=== PATIENT | male | born 1965 | race Caucasian/White ===

== ENCOUNTER 2021-09-14 14:45 | Inpatient (IN) | payer OTHER ==
[~2021-09-14] VITALS: Ht 177.8 cm; Wt 80.0 kg
[2021-09-14] VITALS (9 sets, daily range): BP systolic 92–117; BP diastolic 49–68
[2021-09-14 15:26] LABS: BASOPHILS % (AUTO) 0.3 % (0-1); EOSINOPHILS % (AUTO) 0.1 % (0-6); LYMPHOCYTES % (AUTO) 8.7 % (21-51); MEAN CORPUSCULAR HEMOGLOBIN 22.6 PG (27.0-31.0); MEAN CORPUSCULAR HGB CONC 28.7 g/dL (33.0-36.5); MEAN CORPUSCULAR VOLUME 78.6 FL (78-98); MEAN PLATELET VOLUME 8.6 FL (7.4-10.4); MONOCYTES # (AUTO) 0.4 X10'3 (0-0.9); MONOCYTES % (AUTO) 3.6 % (2-12); NEUTROPHILS # (AUTO) 9.6 X10'3 (1.8-7.7); NEUTROPHILS % (AUTO) 87.3 % (42-75); PLATELET COUNT 343 X10'3 (140-440); RED BLOOD COUNT 2.11 X10'6 (4.70-6.10); RED CELL DISTRIBUTION WIDTH 20.3 % (11.5-14.5)
[2021-09-14 15:38] LABS: ALANINE AMINOTRANSFERASE 24 U/L (12-78); ALBUMIN 2.5 G/DL (3.4-5.0); ALBUMIN/GLOBULIN RATIO 0.6 (1.1-1.5); ALKALINE PHOSPHATASE 35 IU/L (46-116); ANION GAP 11 (8-16); ASPARTATE AMINO TRANSFERASE 19 U/L (10-37); BILIRUBIN,TOTAL 0.6 MG/DL (0.1-1.0); BLOOD UREA NITROGEN 49 MG/DL (7-18); BUN/CREATININE RATIO 33.8 (5.4-32.0); CALCIUM 8.5 MG/DL (8.5-10.1); CHLORIDE 95 MMOL/L (99-107); CREATININE 1.45 MG/DL (0.60-1.10); POTASSIUM 5.6 MMOL/L (3.5-5.1); SODIUM 127 MMOL/L (135-145); TOTAL CARBON DIOXIDE 20.7 MMOL/L (24-32); TOTAL PROTEIN 6.4 G/DL (6.4-8.2); eGFR 50 ML/MIN
[2021-09-14 15:41] LABS: HEMATOCRIT 16.6 % (42.0-52.0); HEMOGLOBIN 4.8 g/dl (14.0-17.9)
[2021-09-14 15:43] LABS: GLUCOSE 589 MG/DL (70-104)
[2021-09-14] MEDS ORDERED: pantoprazole IV 80 MG in normal saline 100ml IV soln 100 ML IV ONE (16:00)
[2021-09-14] MEDS ORDERED: octreotide 100mcg/1 ml ampule IV ONE (16:00)
[2021-09-14 16:02] LABS: PLATELET ESTIMATE NORMAL
[2021-09-14 16:03] LABS: ANISOCYTOSIS 3+; HYPOCHROMASIA 1+; MICROCYTOSIS 1+; STOMATOCYTES 2+
[2021-09-14 16:04] LABS: POLYCHROMASIA 2+
[2021-09-14 16:09] LABS: APTT 24 SECONDS (22-32)
[2021-09-14] MEDS ORDERED: octreotide inj. 1,250 MCG in normal saline 250ml IV soln 250 ML IV SCH (16:10)
[2021-09-14] MEDS ORDERED: octreotide inj. 1,250 MCG in normal saline 250ml IV soln 243.75 ML IV SCH (16:11)
[2021-09-14] MEDS ORDERED: pantoprazole IV 40 MG in normal saline 100ml IV soln 100 ML IV SCH (16:13)
[2021-09-14] MEDS: pantoprazole 40MG/NS 100ML BAG 100 ML IV SCH ×4 (16:29→23:15)
--- NOTE | 2021-09-14 16:41 | NUR ---
Pt tolerating blood transfusion without difficulty.
[2021-09-14] MEDS ORDERED: TACR1CAP PO ×2 (16:48)
[2021-09-14] MEDS ORDERED: PRED20TA PO (16:50)
[2021-09-14] MEDS ORDERED: MAGN400C PO (16:50)
[2021-09-14] MEDS: normal saline 1000ml 1,000 ML IV SCH ×2 (16:55→23:15)
[2021-09-14] MEDS ORDERED: magnesium 2GM in 50ml NS 50 ML IV PRN (16:55)
[2021-09-14] MEDS ORDERED: POTASSIUM BICARB 20meq eff tab 20 MEQ TABLET.EFF PO PRN ×2 (16:55)
[2021-09-14] MEDS ORDERED: potassium CL 10mEq/100ml bag 100 ML IV PRN (16:55)
[2021-09-14] MEDS ORDERED: magnesium 4gm in 100ml NS 100 ML IV PRN (16:55)
[2021-09-14] MEDS ORDERED: ondansetron/PF 4mg/2ml inj IV PRN (16:55)
[2021-09-14] MEDS ORDERED: magnesium Cl slow-release 64mg tablet PO PRN (16:55)
--- NOTE | 2021-09-14 18:15 | NUR ---
ASSUMED CARE OF PT. REPORT RECIEVED FROM JEEVAN NEWBERRY. PT AWAKE AND ALERT. PLAN OF CARE DISCUSEED WITH PT. PT CONT ON PRBC TRANSFUSSION. NO S/S OF ADVERSE AFFECT. WILL MONIOTR.
--- NOTE | 2021-09-14 18:20 | NUR ---
Report given to Sherie.
[2021-09-14 19:22] LABS: MAGNESIUM 2.1 MG/DL (1.5-2.4)
--- NOTE | 2021-09-14 19:39 | NUR ---
PT STARTED ON 2ND UNIT OF PRBC.
[2021-09-14 19:44] LABS: POTASSIUM 6.2 MMOL/L (3.5-5.1)
--- NOTE | 2021-09-14 19:50 | NUR ---
PT IS TOLERATING 2ND UNIT OF PRBC. NO S/S OF ADVERSE REACTION. WILL MONITOR.
[2021-09-14] MEDS: K and/or MAG REPLACEMENT MC SCH (20:00)
[2021-09-14] MEDS ORDERED: sodium polystyrene sulfonate 15gm/60ml oral suspension PO ONE (20:00)
[2021-09-14] MEDS ORDERED: glucagon, human recombinant 1mg kit SUBCUT PRN (20:10)
[2021-09-14] MEDS ORDERED: dextrose 50%-water 50ml dispensing syringe IV PRN ×2 (20:10)
[2021-09-14] MEDS ORDERED: DEXTROSE 15 GM of carb/4 tabs (each vial/BOTTLE has 4 tablets) PO PRN ×2 (20:10)
[2021-09-14] MEDS ORDERED: MESSAGE TO PHARMACY PO ONE (20:10)
[2021-09-14 20:25] LABS: HEMOGLOBIN A1C 9.5 % (4.5-6.2)
[2021-09-14] MEDS ORDERED: octreotide inj. 500 MCG in normal saline 100ml IV soln 97.5 ML IV SCH (20:55)
[2021-09-14] MEDS ORDERED: pantoprazole 40MG/NS 100ML BAG 100 ML IV SCH (21:00)
[2021-09-14] MEDS: insulin glargine (Lantus) pen - multi-dose SQ SCH (21:00)
[2021-09-14] MEDS: insulin Lispro (HumaLOG) vial - multi-dose SQ SCH (21:48)
[2021-09-14] MEDS: HYDROcodone/acetaminophen 10/325mg tab PO PRN (23:08)
[2021-09-14 23:18] LABS: MEAN CORPUSCULAR HEMOGLOBIN 25.8 PG (27.0-31.0); MEAN CORPUSCULAR HGB CONC 31.7 g/dL (33.0-36.5); MEAN CORPUSCULAR VOLUME 81.4 FL (78-98); MEAN PLATELET VOLUME 8.6 FL (7.4-10.4); PLATELET COUNT 195 X10'3 (140-440); RED BLOOD COUNT 2.36 X10'6 (4.70-6.10); RED CELL DISTRIBUTION WIDTH 19.5 % (11.5-14.5); WHITE BLOOD COUNT 6.6 X10'3 (4.5-11.0)
[2021-09-14 23:25] LABS: HEMATOCRIT 19.2 % (42.0-52.0); HEMOGLOBIN 6.1 g/dl (14.0-17.9)
[2021-09-15] VITALS (15 sets, daily range): BP systolic 101–135; BP diastolic 54–92
--- NOTE | 2021-09-15 00:15 | NUR ---
UNIT 3 PRBC'S STARTED HEMOGLOBIN REDRAW AT 6.1. PT CONTINUES TO HAVE FREQUENT COPIUS BLOODY STOOLS.
[2021-09-15] MEDS: pantoprazole 40MG/NS 100ML BAG 100 ML IV SCH ×5 (01:00→21:00)
[2021-09-15] MEDS: normal saline 1000ml 1,000 ML IV SCH ×5 (02:55→22:55)
--- NOTE | 2021-09-15 06:33 | NUR ---
Problems reprioritized. Patient report given, questions answered & plan of care reviewed with
[2021-09-15 07:22] LABS: BASOPHILS % (AUTO) 0.2 % (0-1); EOSINOPHILS % (AUTO) 0.1 % (0-6); LYMPHOCYTES % (AUTO) 19.1 % (21-51); MEAN CORPUSCULAR HEMOGLOBIN 26.3 PG (27.0-31.0); MEAN CORPUSCULAR HGB CONC 32.4 g/dL (33.0-36.5); MEAN PLATELET VOLUME 8.4 FL (7.4-10.4); MONOCYTES # (AUTO) 0.6 X10'3 (0-0.9); MONOCYTES % (AUTO) 11.3 % (2-12); NEUTROPHILS # (AUTO) 3.5 X10'3 (1.8-7.7); NEUTROPHILS % (AUTO) 69.3 % (42-75); PLATELET COUNT 161 X10'3 (140-440); RED BLOOD COUNT 2.62 X10'6 (4.70-6.10); RED CELL DISTRIBUTION WIDTH 17.6 % (11.5-14.5)
[2021-09-15 07:37] LABS: OCCULT BLOOD STOOL POSITIVE (Neg)
[2021-09-15 07:39] LABS: HEMATOCRIT 21.2 % (42.0-52.0); HEMOGLOBIN 6.9 g/dl (14.0-17.9)
[2021-09-15 07:59] LABS: ALANINE AMINOTRANSFERASE 20 U/L (12-78); ALBUMIN 2.4 G/DL (3.4-5.0); ALBUMIN/GLOBULIN RATIO 0.7 (1.1-1.5); ALKALINE PHOSPHATASE 29 IU/L (46-116); ANION GAP 8 (8-16); ASPARTATE AMINO TRANSFERASE 14 U/L (10-37); BILIRUBIN,TOTAL 1.3 MG/DL (0.1-1.0); BLOOD UREA NITROGEN 52 MG/DL (7-18); BUN/CREATININE RATIO 44.1 (5.4-32.0); CHLORIDE 98 MMOL/L (99-107); CREATININE 1.18 MG/DL (0.60-1.10); GLUCOSE 433 MG/DL (70-104); MAGNESIUM 1.9 MG/DL (1.5-2.4); POTASSIUM 4.6 MMOL/L (3.5-5.1); SODIUM 130 MMOL/L (135-145); TOTAL CARBON DIOXIDE 23.9 MMOL/L (24-32); TOTAL PROTEIN 5.7 G/DL (6.4-8.2); eGFR 63 ML/MIN
[2021-09-15] MEDS: K and/or MAG REPLACEMENT MC SCH ×2 (08:00→20:00)
--- NOTE | 2021-09-15 08:22 | NUR ---
PAGER ID: [phone] MESSAGE: H/H is now 6.9/21.4 EGD is at 9:00am
[2021-09-15] MEDS ORDERED: MIDAZolam 1 MG/ML 5ML VIAL ONE (08:42)
[2021-09-15] MEDS ORDERED: fentaNYL/PF 50MCG/1 ML 2ML syringe ONE (08:42)
[2021-09-15] MEDS ORDERED: diphenhydrAMINE 50 mg/ml inj ONE (08:43)
[2021-09-15] MEDS ORDERED: LIDOcaine Viscous 15ml cup ONE (08:43)
--- NOTE | 2021-09-15 10:51 | NUR ---
Malnutrition consult: Pt reports 14-23 lb wt loss with decreased appetite per malnutrition risk screen with RN. Unable to obtain information from pt as pt not in room during attempted visit, at EGD per EMR. No scaled wt hx in EMR and current documented wt is not scaled though if accurate is 106% IBW. Pt with no documented decrease in muscle strength or edema. Unable to fully assess for malnutrition at this time. Noted pt with BG 589 mg/dL on admit with A1c 9.5% though per EMR pt denies PMH of DM. Pt would benefit from DM education once official DM dx has been provided by physician. Of note pt with scheduled Prednisone on home med rx list which is likely to impact blood sugars, though pt believes elevated blood sugar is r/t high soda intake per physician notes. Pt admit for anemia with GIB, currently NPO. LBM 09/14. Will continue to follow closely. Recommendations: 1) Advance to CHO controlled diet as medically indicated 2) Bowel care per physician 3) Scaled weight this admit; subsequent weekly scaled weights 4) DM education once pt stable and official DM dx by physician is confirmed; A1c 9.5% with BG 589 mg/dL on admit Addendum: 09/15/21 at [address] Amended: Links added.
[2021-09-15] MEDS: insulin Lispro (HumaLOG) vial - multi-dose SQ SCH ×2 (12:07→21:38)
[2021-09-15] MEDS ORDERED: PEG 3350/Na sulf,bicarb,Cl/KCl oral sol 4 liter bottle PO ONE (13:25)
[2021-09-15] MEDS: HYDROcodone/acetaminophen 10/325mg tab PO PRN (17:24)
[2021-09-15 19:34] LABS: HEMATOCRIT 24.2 % (42.0-52.0); HEMOGLOBIN 7.8 g/dl (14.0-17.9); MEAN CORPUSCULAR HEMOGLOBIN 26.1 PG (27.0-31.0); MEAN CORPUSCULAR VOLUME 81.5 FL (78-98); MEAN PLATELET VOLUME 7.8 FL (7.4-10.4); PLATELET COUNT 137 X10'3 (140-440); RED BLOOD COUNT 2.97 X10'6 (4.70-6.10); RED CELL DISTRIBUTION WIDTH 17.5 % (11.5-14.5); WHITE BLOOD COUNT 4.3 X10'3 (4.5-11.0)
[2021-09-15] MEDS ORDERED: tacrolimus anhydrous 1mg capsule PO SCH (21:00)
--- NOTE | 2021-09-15 21:01 | NUR ---
blood transfusion with no reaction or side effects.
[2021-09-15] MEDS: insulin glargine (Lantus) pen - multi-dose SQ SCH (21:36)
[2021-09-16] VITALS (8 sets, daily range): BP systolic 111–153; BP diastolic 70–94
[2021-09-16] MEDS: pantoprazole 40MG/NS 100ML BAG 100 ML IV SCH ×2 (02:21→06:00)
[2021-09-16] MEDS: HYDROcodone/acetaminophen 10/325mg tab PO PRN (02:41)
[2021-09-16] MEDS: normal saline 1000ml 1,000 ML IV SCH (02:55)
--- NOTE | 2021-09-16 06:27 | NUR ---
Problems reprioritized. Patient report given, questions answered & plan of care reviewed with Elizabeth NEWBERRY. Addendum: 09/16/21 at 0627 by Carmen Tao RN Amended: Links added.
[2021-09-16 06:34] LABS: BASOPHILS % (AUTO) 0.2 % (0-1); EOSINOPHILS % (AUTO) 0.6 % (0-6); HEMATOCRIT 24.5 % (42.0-52.0); LYMPHOCYTES # (AUTO) 0.6 X10'3 (1.1-4.8); LYMPHOCYTES % (AUTO) 14.5 % (21-51); MEAN CORPUSCULAR HEMOGLOBIN 26.5 PG (27.0-31.0); MEAN CORPUSCULAR HGB CONC 32.8 g/dL (33.0-36.5); MEAN CORPUSCULAR VOLUME 80.9 FL (78-98); MEAN PLATELET VOLUME 7.8 FL (7.4-10.4); MONOCYTES # (AUTO) 0.4 X10'3 (0-0.9); MONOCYTES % (AUTO) 9.3 % (2-12); NEUTROPHILS # (AUTO) 3.4 X10'3 (1.8-7.7); NEUTROPHILS % (AUTO) 75.4 % (42-75); PLATELET COUNT 131 X10'3 (140-440); RED BLOOD COUNT 3.03 X10'6 (4.70-6.10); RED CELL DISTRIBUTION WIDTH 17.6 % (11.5-14.5); WHITE BLOOD COUNT 4.5 X10'3 (4.5-11.0)
[2021-09-16 07:00] LABS: ALBUMIN 2.6 G/DL (3.4-5.0); ANION GAP 9 (8-16); BLOOD UREA NITROGEN 22 MG/DL (7-18); BUN/CREATININE RATIO 23.7 (5.4-32.0); CALCIUM 7.9 MG/DL (8.5-10.1); CHLORIDE 101 MMOL/L (99-107); CREATININE 0.93 MG/DL (0.60-1.10); GLUCOSE 299 MG/DL (70-104); MAGNESIUM 1.5 MG/DL (1.5-2.4); POTASSIUM 3.4 MMOL/L (3.5-5.1); SODIUM 137 MMOL/L (135-145); TOTAL CARBON DIOXIDE 26.6 MMOL/L (24-32); eGFR 83 ML/MIN
[2021-09-16] MEDS: K and/or MAG REPLACEMENT MC SCH (08:00)
[2021-09-16] MEDS ORDERED: tacrolimus anhydrous 1mg capsule PO SCH (08:00)
[2021-09-16] MEDS: insulin Lispro (HumaLOG) vial - multi-dose SQ SCH (08:02)
--- NOTE | 2021-09-16 08:04 | NUR ---
Pt. is not on any IV drips, although some ordered? Per night RN pt. has not been on them since yesterday afternoon. Partial reason was to fluid overload? Will clarify with MD. Also night insulin dose of humalog not given per protocol. Will keep pt. at a level 3 this AM to assess reaction to actual protocol dose of insulin.
--- NOTE | 2021-09-16 11:00 | NUR ---
Pt. down to GI lab for lower GI study with MD Berry.
[2021-09-16] MEDS ORDERED: fentaNYL/PF 50MCG/1 ML 2ML syringe ONE (11:09)
[2021-09-16] MEDS ORDERED: diphenhydrAMINE 50 mg/ml inj ONE (11:09)
[2021-09-16] MEDS ORDERED: MIDAZolam 1 MG/ML 5ML VIAL ONE (11:09)
--- NOTE | 2021-09-16 11:13 | NUR ---
PAGER ID: [phone] MESSAGE: Mauricio Stone [phone] Pt. has not been on a drip or ns at 100ml/hr for a day and a half. Got in report that this is r/t fluid overload issue?? Did you DC? Or do you want continued? Elizabeth [phone]
[2021-09-16] MEDS ORDERED: ESOM40CA54 PO (14:03)
--- NOTE | 2021-09-16 14:17 | NUR ---
PAGER ID: [phone] MESSAGE: Mauricio Stone [phone] Do you want me to give pt. anything for 3.4 k lab before he goes home? Elizabeth [phone]
[2021-09-16] MEDS ORDERED: potassium Cl 20 mEq SR tablet PO STA (14:18)
[2021-09-16] MEDS ORDERED: METF-1203 PO (14:50)
--- NOTE | 2021-09-16 17:36 | NUR ---
DISCHARGE NOTE: Reviewed discharge paperwork with pt. Pt. was given extensive verbal and written education on DM. Discussed diet, s/sx hypo/hyperglycemia, f/u care, risks of DM, importance of seeing PCP. Pt. has a PCP in [place] but is currently trying to move to [place] with his fiance. Recommended [facility] for him. Discussed infection control and hand hygiene. Pt. was able to demonstrate taking a blood glucose with a glucometer. Confused on how to use the strips at first but then able to demonstrate accurately with re-demonstration. Pt gave great verbal feedback on s/sx hypo/hyperglycemia and diet. Discussed hydration and exercise. Recommended pt. call social media strategist here if any concerns about billing or being able to afford diabetic medications. Pt does have insurance however. Discussed two new medications and possible ASE. Written education provided as well. Physical orders provided for glucometer and strips and pt told where he could privately buy these items as well. Pt. is employed. Pt. given contact information for GI MD Brown. He knows to f/u with her to get polyps biopsy reports. Knows to ask his PCP for a CMP and CMP in one weak. Discussed s/sx anemia as well and pt agrees to come back into the ER if he feels these symptoms again, does not stop bleeding, or can not figure out how to manage his DM. Pt. had his pancreas removed 9 years ago and claims to have never had an issue with blood glucose or DM. Tele removed and returned. EJ IV removed, pressure bandage applied. Cannula intact and no s/sx bleeding noted. Pt. escorted to his fiance's vehicle in a w/c with all of his belongings.
[2021-09-16] MEDS ORDERED: pantoprazole 40mg Tablet.DR PO SCH (20:00)
== END 2021-09-16 17:36 | disposition home or self-care (01) | DRG 377 ==
LOC: ER 14:47 → ED HOLD 16:56 → EDBEDREQ 19:19 → PCU 3S 20:30
PROVIDERS: ADMIT Internal Medicine; ATTEND Internal Medicine
PROC: 30233N1 Transfusion of Nonautologous Red Blood Cells into Peripheral Vein, Percutaneous Approach (ICD-10-PCS; 2021-09-14)
PROC: 0DB98ZX Excision of Duodenum, Via Natural or Artificial Opening Endoscopic, Diagnostic (ICD-10-PCS; 2021-09-15)
PROC: 0DB68ZX Excision of Stomach, Via Natural or Artificial Opening Endoscopic, Diagnostic (ICD-10-PCS; 2021-09-15)
PROC: 0DBL8ZX Excision of Transverse Colon, Via Natural or Artificial Opening Endoscopic, Diagnostic (ICD-10-PCS; principal; 2021-09-16)
DX: K31.811 Angiodysplasia of stomach and duodenum with bleeding (principal); N17.0 Acute kidney failure with tubular necrosis; D84.821 Immunodeficiency due to drugs; Z94.4 Liver transplant status; K29.61 Other gastritis with bleeding; I86.4 Gastric varices; K57.30 Diverticulosis of large intestine without perforation or abscess without bleeding; K63.5 Polyp of colon; D64.9 Anemia, unspecified; E11.65 Type 2 diabetes mellitus with hyperglycemia; E87.5 Hyperkalemia; E86.9 Volume depletion, unspecified; Z79.899 Other long term (current) drug therapy
CPT/HCPCS: 36415; 36430; 43239; 45380; 45385; 71045; 80048; 80053; 82272; 82948; 83036; 83735; 84132; 84484; 85008; 85025; 85027; 85610; 85730; 86644; 86885; 86900; 86901; 86920; 86945; 87081; 93005; 99152; 99153; 99285; A4615; A4620; C9113; G0378; J1200; J1815; J2250; J2354; J3010; J7030; J7040; J7050; J7507; P9016

== ENCOUNTER 2021-11-06 11:13 | Emergency (ER) | payer MEDICAID ==
[~2021-11-06] VITALS: Ht 177.8 cm; Wt 77.3 kg
[2021-11-06] VITALS (16 sets, daily range): BP systolic 102–134; BP diastolic 60–96
[~2021-11-06 11:13] MED LIST: TACR1CAP PO
[2021-11-06] MEDS ORDERED: normal saline 1000ML IV soln IV ONE (11:25)
[2021-11-06 11:56] LABS: BASOPHILS % (AUTO) 1.4 % (0-1); EOSINOPHILS # (AUTO) 0.1 X10'3 (0-0.9); EOSINOPHILS % (AUTO) 2.3 % (0-6); LYMPHOCYTES % (AUTO) 29.5 % (21-51); MEAN CORPUSCULAR HEMOGLOBIN 26.3 PG (27.0-31.0); MEAN CORPUSCULAR HGB CONC 31.7 g/dL (33.0-36.5); MEAN PLATELET VOLUME 8.5 FL (7.4-10.4); MONOCYTES # (AUTO) 0.4 X10'3 (0-0.9); MONOCYTES % (AUTO) 11.8 % (2-12); NEUTROPHILS # (AUTO) 1.9 X10'3 (1.8-7.7); PLATELET COUNT 205 X10'3 (140-440); RED BLOOD COUNT 1.68 X10'6 (4.70-6.10); RED CELL DISTRIBUTION WIDTH 18.6 % (11.5-14.5); WHITE BLOOD COUNT 3.5 X10'3 (4.5-11.0)
[2021-11-06 11:59] LABS: HEMOGLOBIN 4.4 g/dl (14.0-17.9)
[2021-11-06 12:15] LABS: ALANINE AMINOTRANSFERASE 14 U/L (12-78); ALBUMIN 2.3 G/DL (3.4-5.0); ALBUMIN/GLOBULIN RATIO 0.7 (1.1-1.5); ALKALINE PHOSPHATASE 27 IU/L (46-116); ANION GAP 9 (8-16); ASPARTATE AMINO TRANSFERASE 17 U/L (10-37); BILIRUBIN,TOTAL 0.3 MG/DL (0.1-1.0); BLOOD UREA NITROGEN 27 MG/DL (7-18); BUN/CREATININE RATIO 32.9 (5.4-32.0); CALCIUM 8.1 MG/DL (8.5-10.1); CHLORIDE 106 MMOL/L (99-107); CREATININE 0.82 MG/DL (0.60-1.10); GLUCOSE 232 MG/DL (70-104); POTASSIUM 4.6 MMOL/L (3.5-5.1); SODIUM 138 MMOL/L (135-145); TOTAL CARBON DIOXIDE 23.1 MMOL/L (24-32); TOTAL PROTEIN 5.8 G/DL (6.4-8.2); eGFR > 90 ML/MIN
[2021-11-06 12:24] LABS: ANISOCYTOSIS 2+; MICROCYTOSIS 1+; PLATELET ESTIMATE NORMAL
[2021-11-06 12:25] LABS: HYPOCHROMASIA 2+; POLYCHROMASIA FEW
[2021-11-06] MEDS ORDERED: HYDROcodone/acetaminophen 5mg/325mg tablet PO ONE (13:55)
[2021-11-06] MEDS ORDERED: pantoprazole 40MG/NS 100ML BAG 100 ML IV STA (16:03)
--- NOTE | 2021-11-06 17:02 | NUR ---
[facility] ACCEPTED PT BUT HAS NO BEDS OF NOW PT IS ON STANDBY FOR A BED.
[2021-11-06] MEDS: octreotide inj. 500 MCG in normal saline 100ml IV soln 97.5 ML IV SCH (17:45)
[2021-11-06 18:57] LABS: MEAN CORPUSCULAR HEMOGLOBIN 27.6 PG (27.0-31.0); MEAN CORPUSCULAR HGB CONC 32.8 g/dL (33.0-36.5); MEAN CORPUSCULAR VOLUME 84.1 FL (78-98); MEAN PLATELET VOLUME 8.5 FL (7.4-10.4); PLATELET COUNT 151 X10'3 (140-440); RED BLOOD COUNT 2.06 X10'6 (4.70-6.10); WHITE BLOOD COUNT 2.4 X10'3 (4.5-11.0)
[2021-11-06 19:08] LABS: HEMOGLOBIN 5.7 g/dl (14.0-17.9)
[2021-11-06 19:09] LABS: HEMATOCRIT 17.3 % (42.0-52.0)
[2021-11-06] MEDS ORDERED: tranexamic acid 1gm/0.7% sal. 100 ML IV ONE (19:10)
--- NOTE | 2021-11-06 19:10 | NUR ---
BLOOD LAB IS AWARE OF PT WILL NEED TWO MORE UNITS.
[2021-11-06] MEDS ORDERED: tranexamic acid inj. 1,000 MG in normal saline 100ml IV soln 90 ML IV ONE (19:14)
--- NOTE | 2021-11-06 19:15 | NUR ---
DR DARLING CAME TO ASSESS PT. HE IS AWARE OF PT'S NEED FOR VASCULAR ACCESS. CENTRAL LINE WAS DISCUSSED. CENTRAL LINE MATERIALS AT BEDSIDE.
--- NOTE | 2021-11-06 19:42 | NUR ---
ACCESS DELAYED AND BLOOD TRANSFUSION DELAYED D/T HIGH ACUITY INCOMING PT
--- NOTE | 2021-11-06 23:40 | NUR ---
TXA MED GIVEN LATE D/T HIGH ACUITY PT REQUIRING 1 TO 1 CARE.
[2021-11-07] VITALS (16 sets, daily range): BP systolic 110–140; BP diastolic 74–91
[2021-11-07 00:04] LABS: MEAN CORPUSCULAR HEMOGLOBIN 26.4 PG (27.0-31.0); MEAN CORPUSCULAR HGB CONC 32.2 g/dL (33.0-36.5); MEAN CORPUSCULAR VOLUME 81.9 FL (78-98); PLATELET COUNT 126 X10'3 (140-440); RED BLOOD COUNT 2.37 X10'6 (4.70-6.10); RED CELL DISTRIBUTION WIDTH 18.8 % (11.5-14.5)
[2021-11-07 00:07] LABS: HEMOGLOBIN 6.2 g/dl (14.0-17.9)
[2021-11-07 00:09] LABS: HEMATOCRIT 19.4 % (42.0-52.0)
--- NOTE | 2021-11-07 03:35 | NUR ---
PT HAD TARRY BM
[2021-11-07 06:02] LABS: BASOPHILS % (AUTO) 0.4 % (0-1); EOSINOPHILS # (AUTO) 0.1 X10'3 (0-0.9); EOSINOPHILS % (AUTO) 5.5 % (0-6); HEMATOCRIT 25.6 % (42.0-52.0); HEMOGLOBIN 8.6 g/dl (14.0-17.9); LYMPHOCYTES # (AUTO) 0.7 X10'3 (1.1-4.8); LYMPHOCYTES % (AUTO) 30.6 % (21-51); MEAN CORPUSCULAR HEMOGLOBIN 27.6 PG (27.0-31.0); MEAN CORPUSCULAR HGB CONC 33.5 g/dL (33.0-36.5); MEAN CORPUSCULAR VOLUME 82.3 FL (78-98); MEAN PLATELET VOLUME 8.2 FL (7.4-10.4); MONOCYTES # (AUTO) 0.2 X10'3 (0-0.9); MONOCYTES % (AUTO) 11.1 % (2-12); NEUTROPHILS # (AUTO) 1.2 X10'3 (1.8-7.7); NEUTROPHILS % (AUTO) 52.4 % (42-75); PLATELET COUNT 132 X10'3 (140-440); RED BLOOD COUNT 3.11 X10'6 (4.70-6.10); RED CELL DISTRIBUTION WIDTH 18.2 % (11.5-14.5); WHITE BLOOD COUNT 2.2 X10'3 (4.5-11.0)
[2021-11-07 06:45] LABS: TOTAL CELLS COUNTED 100
[2021-11-07 06:46] LABS: ANISOCYTOSIS 2+; BURR CELLS FEW; LARGE PLATELETS FEW; PLATELET ESTIMATE DECREASED
[2021-11-07] MEDS ORDERED: morphine 4 MG/ML inj SYRINge IV ONE ×2 (10:55→14:00)
--- NOTE | 2021-11-07 10:58 | NUR ---
SPOKE WITH ETHAN AT [facility], NEW ONSET LOWER ABD PAIN, MS 4MG IV , LARGE BLOOD STOOL THIS AM .
[2021-11-07 11:02] LABS: HEMATOCRIT 28.1 % (42.0-52.0); HEMOGLOBIN 9.1 g/dl (14.0-17.9); MEAN CORPUSCULAR HGB CONC 32.3 g/dL (33.0-36.5); MEAN CORPUSCULAR VOLUME 83.8 FL (78-98); MEAN PLATELET VOLUME 8.1 FL (7.4-10.4); PLATELET COUNT 144 X10'3 (140-440); RED BLOOD COUNT 3.36 X10'6 (4.70-6.10); WHITE BLOOD COUNT 2.4 X10'3 (4.5-11.0)
[2021-11-07 11:13] LABS: ANION GAP 7 (8-16); BILIRUBIN,TOTAL 0.7 MG/DL (0.1-1.0); BLOOD UREA NITROGEN 15 MG/DL (7-18); BUN/CREATININE RATIO 22.1 (5.4-32.0); CALCIUM 8.5 MG/DL (8.5-10.1); CHLORIDE 107 MMOL/L (99-107); CREATININE 0.68 MG/DL (0.60-1.10); GLUCOSE 175 MG/DL (70-104); SODIUM 139 MMOL/L (135-145); TOTAL CARBON DIOXIDE 25.1 MMOL/L (24-32); TOTAL PROTEIN 5.9 G/DL (6.4-8.2); eGFR > 90 ML/MIN
[2021-11-07 11:14] LABS: ALANINE AMINOTRANSFERASE 12 U/L (12-78); ALBUMIN 2.4 G/DL (3.4-5.0); ALBUMIN/GLOBULIN RATIO 0.7 (1.1-1.5); ALKALINE PHOSPHATASE 28 IU/L (46-116); ASPARTATE AMINO TRANSFERASE 25 U/L (10-37)
[2021-11-07 11:16] LABS: POTASSIUM 4.7 MMOL/L (3.5-5.1)
[2021-11-07 11:27] LABS: CLARITY,URINE CLEAR (Clear); COLOR,URINE YELLOW (Yellow); GLUCOSE, URINE NEGATIVE (Neg); KETONES,URINE NEGATIVE (Neg); LEUKOCYTE ESTERASE ,URINE NEGATIVE (Neg); NITRITES, URINE NEGATIVE (Neg); OCCULT BLOOD,URINE NEGATIVE (Neg); PROTEIN,URINE NEGATIVE (Neg); UROBILINOGEN,URINE 0.2 E.U/dL (0.2-1.0)
[2021-11-07 11:35] LABS: UA COLLECTION TYPE CLN CATCH MIDSTREAM
[2021-11-07] MEDS: dextrose 5%-normal saline 1,000 ML IV SCH ×2 (13:21→21:30)
[2021-11-07] MEDS: octreotide inj. 500 MCG in normal saline 100ml IV soln 97.5 ML IV SCH (13:48)
[2021-11-07 14:12] LABS: HEMATOCRIT 26.7 % (42.0-52.0); HEMOGLOBIN 8.8 g/dl (14.0-17.9); MEAN CORPUSCULAR HEMOGLOBIN 27.1 PG (27.0-31.0); MEAN CORPUSCULAR VOLUME 82.2 FL (78-98); PLATELET COUNT 137 X10'3 (140-440); RED BLOOD COUNT 3.25 X10'6 (4.70-6.10); RED CELL DISTRIBUTION WIDTH 17.9 % (11.5-14.5); WHITE BLOOD COUNT 2.3 X10'3 (4.5-11.0)
[2021-11-07] MEDS ORDERED: tacrolimus anhydrous 1mg capsule PO ONE (14:51)
[2021-11-07 17:59] LABS: HEMATOCRIT 25.8 % (42.0-52.0); HEMOGLOBIN 8.5 g/dl (14.0-17.9); MEAN CORPUSCULAR HEMOGLOBIN 27.2 PG (27.0-31.0); MEAN CORPUSCULAR HGB CONC 33.1 g/dL (33.0-36.5); MEAN CORPUSCULAR VOLUME 82.2 FL (78-98); MEAN PLATELET VOLUME 8.1 FL (7.4-10.4); PLATELET COUNT 138 X10'3 (140-440); RED BLOOD COUNT 3.14 X10'6 (4.70-6.10); RED CELL DISTRIBUTION WIDTH 18.2 % (11.5-14.5); WHITE BLOOD COUNT 2.2 X10'3 (4.5-11.0)
[2021-11-07] MEDS: tacrolimus anhydrous 1mg capsule PO SCH (20:15)
[2021-11-07] MEDS ORDERED: morphine 4 MG/ML inj SYRINge IM STA (21:47)
[2021-11-07] MEDS ORDERED: ondansetron/PF 4mg/2ml inj IV STA (21:47)
[2021-11-07 21:49] LABS: HEMATOCRIT 22.4 % (42.0-52.0); HEMOGLOBIN 7.3 g/dl (14.0-17.9); MEAN CORPUSCULAR HEMOGLOBIN 27.1 PG (27.0-31.0); MEAN CORPUSCULAR HGB CONC 32.7 g/dL (33.0-36.5); MEAN CORPUSCULAR VOLUME 82.9 FL (78-98); MEAN PLATELET VOLUME 8.1 FL (7.4-10.4); PLATELET COUNT 137 X10'3 (140-440); RED CELL DISTRIBUTION WIDTH 18.4 % (11.5-14.5); WHITE BLOOD COUNT 2.5 X10'3 (4.5-11.0)
[2021-11-07] MEDS ORDERED: diphenhydrAMINE 25mg capsule PO ONE (23:25)
[2021-11-08] VITALS (14 sets, daily range): BP systolic 117–140; BP diastolic 70–93
[2021-11-08 04:21] LABS: HEMATOCRIT 23.4 % (42.0-52.0); HEMOGLOBIN 7.7 g/dl (14.0-17.9); MEAN CORPUSCULAR HEMOGLOBIN 27.5 PG (27.0-31.0); MEAN CORPUSCULAR VOLUME 83.1 FL (78-98); MEAN PLATELET VOLUME 7.9 FL (7.4-10.4); PLATELET COUNT 125 X10'3 (140-440); RED BLOOD COUNT 2.82 X10'6 (4.70-6.10); RED CELL DISTRIBUTION WIDTH 17.8 % (11.5-14.5); WHITE BLOOD COUNT 2.3 X10'3 (4.5-11.0)
[2021-11-08] MEDS: octreotide inj. 500 MCG in normal saline 100ml IV soln 97.5 ML IV SCH (05:07)
[2021-11-08] MEDS: dextrose 5%-normal saline 1,000 ML IV SCH ×2 (07:30→17:46)
[2021-11-08] MEDS ORDERED: tranexamic acid 1gm/0.7% sal. 100 ML IV ONE (08:40)
[2021-11-08] MEDS: tacrolimus anhydrous 1mg capsule PO SCH ×2 (08:50→21:47)
[2021-11-08] MEDS ORDERED: tranexamic acid inj. 1,000 MG in normal saline 100ml IV soln 90 ML IV ONE (09:06)
[2021-11-08] MEDS ORDERED: tranexamic acid inj. 1,000 MG in normal saline 100ml IV soln 100 ML IV ONE (09:06)
[2021-11-08] MEDS ORDERED: pantoprazole 40MG/NS 100ML BAG 100 ML IV STA (09:30)
[2021-11-08] MEDS: morphine 4 MG/ML inj SYRINge IV PRN ×2 (09:38→21:43)
[2021-11-08 10:14] LABS: ALANINE AMINOTRANSFERASE 18 U/L (12-78); ALBUMIN 2.2 G/DL (3.4-5.0); ALBUMIN/GLOBULIN RATIO 0.7 (1.1-1.5); ALKALINE PHOSPHATASE 25 IU/L (46-116); ANION GAP 7 (8-16); ASPARTATE AMINO TRANSFERASE 24 U/L (10-37); BILIRUBIN,TOTAL 0.5 MG/DL (0.1-1.0); BLOOD UREA NITROGEN 11 MG/DL (7-18); BUN/CREATININE RATIO 16.4 (5.4-32.0); CALCIUM 8.1 MG/DL (8.5-10.1); CHLORIDE 107 MMOL/L (99-107); CREATININE 0.67 MG/DL (0.60-1.10); GLUCOSE 200 MG/DL (70-104); POTASSIUM 4.4 MMOL/L (3.5-5.1); SODIUM 139 MMOL/L (135-145); TOTAL CARBON DIOXIDE 24.7 MMOL/L (24-32); TOTAL PROTEIN 5.4 G/DL (6.4-8.2); eGFR > 90 ML/MIN
[2021-11-08] MEDS ORDERED: fentaNYL/PF 50MCG/1 ML 2ML syringe ONE (11:59)
[2021-11-08] MEDS ORDERED: MIDAZolam 1 MG/ML 5ML VIAL ONE (11:59)
[2021-11-08] MEDS ORDERED: LIDOcaine Viscous 15ml cup ONE (11:59)
--- NOTE | 2021-11-08 12:20 | NUR ---
Pt taken to GI Lab.
--- NOTE | 2021-11-08 13:50 | NUR ---
Pt returned from GI lab. Given IV 4mg Versed, and IV 50mg fentanyl. Pt is awake and alert.
[2021-11-08 14:07] LABS: HEMATOCRIT 29.9 % (42.0-52.0); HEMOGLOBIN 9.5 g/dl (14.0-17.9); MEAN CORPUSCULAR HGB CONC 31.9 g/dL (33.0-36.5); MEAN CORPUSCULAR VOLUME 84.6 FL (78-98); MEAN PLATELET VOLUME 7.9 FL (7.4-10.4); PLATELET COUNT 147 X10'3 (140-440); RED BLOOD COUNT 3.53 X10'6 (4.70-6.10); RED CELL DISTRIBUTION WIDTH 18.3 % (11.5-14.5); WHITE BLOOD COUNT 2.6 X10'3 (4.5-11.0)
--- NOTE | 2021-11-08 14:17 | NUR ---
Up to void.
[2021-11-08 17:59] LABS: HEMATOCRIT 25.3 % (42.0-52.0); HEMOGLOBIN 8.3 g/dl (14.0-17.9); MEAN CORPUSCULAR HEMOGLOBIN 27.2 PG (27.0-31.0); MEAN CORPUSCULAR HGB CONC 32.8 g/dL (33.0-36.5); MEAN CORPUSCULAR VOLUME 82.9 FL (78-98); MEAN PLATELET VOLUME 7.9 FL (7.4-10.4); PLATELET COUNT 128 X10'3 (140-440); RED BLOOD COUNT 3.05 X10'6 (4.70-6.10); RED CELL DISTRIBUTION WIDTH 18.5 % (11.5-14.5); WHITE BLOOD COUNT 2.4 X10'3 (4.5-11.0)
--- NOTE | 2021-11-08 19:00 | NUR ---
SPOKE TO JG CONCERNING WHETHER TO TRANSFUSE ONE MORE UNIT OF BLOOD NOW OR WAIT. HE GAVE ORDER TO WAIT HEMOGLOBIN IS ABOVE 8 AND TO INFUSE NEXT UNIT IF NEXT SCHEDULED HEMOGRAM REVEALS HEMOGLOBIN OF 7.
[2021-11-08] MEDS ORDERED: pantoprazole 40MG/NS 100ML BAG 100 ML IV SCH (20:00)
[2021-11-08 21:43] LABS: HEMATOCRIT 23.9 % (42.0-52.0); HEMOGLOBIN 7.8 g/dl (14.0-17.9); MEAN CORPUSCULAR HEMOGLOBIN 27.1 PG (27.0-31.0); MEAN CORPUSCULAR HGB CONC 32.7 g/dL (33.0-36.5); MEAN CORPUSCULAR VOLUME 82.9 FL (78-98); MEAN PLATELET VOLUME 7.8 FL (7.4-10.4); PLATELET COUNT 145 X10'3 (140-440); RED BLOOD COUNT 2.88 X10'6 (4.70-6.10); RED CELL DISTRIBUTION WIDTH 17.9 % (11.5-14.5); WHITE BLOOD COUNT 3.3 X10'3 (4.5-11.0)
[2021-11-09] VITALS: BP 121/88
[2021-11-09] MEDS ORDERED: diphenhydrAMINE 50 mg/ml inj IV ONE (00:05)
[2021-11-09 00:35] VITALS: BP 137/91
[2021-11-09 01:58] LABS: HEMATOCRIT 24.6 % (42.0-52.0); HEMOGLOBIN 8.2 g/dl (14.0-17.9); MEAN CORPUSCULAR HEMOGLOBIN 27.8 PG (27.0-31.0); MEAN CORPUSCULAR HGB CONC 33.1 g/dL (33.0-36.5); MEAN CORPUSCULAR VOLUME 83.8 FL (78-98); MEAN PLATELET VOLUME 7.6 FL (7.4-10.4); PLATELET COUNT 132 X10'3 (140-440); RED BLOOD COUNT 2.94 X10'6 (4.70-6.10); RED CELL DISTRIBUTION WIDTH 17.5 % (11.5-14.5); WHITE BLOOD COUNT 2.8 X10'3 (4.5-11.0)
[2021-11-09] MEDS: dextrose 5%-normal saline 1,000 ML IV SCH ×2 (03:50→04:06)
[2021-11-09] MEDS: octreotide inj. 500 MCG in normal saline 100ml IV soln 97.5 ML IV SCH (04:03)
[2021-11-09 05:47] LABS: HEMATOCRIT 24.8 % (42.0-52.0); HEMOGLOBIN 8.3 g/dl (14.0-17.9); MEAN CORPUSCULAR HEMOGLOBIN 27.9 PG (27.0-31.0); MEAN CORPUSCULAR HGB CONC 33.4 g/dL (33.0-36.5); MEAN CORPUSCULAR VOLUME 83.5 FL (78-98); MEAN PLATELET VOLUME 8.1 FL (7.4-10.4); PLATELET COUNT 125 X10'3 (140-440); RED BLOOD COUNT 2.97 X10'6 (4.70-6.10); RED CELL DISTRIBUTION WIDTH 17.5 % (11.5-14.5); WHITE BLOOD COUNT 2.5 X10'3 (4.5-11.0)
--- NOTE | 2021-11-09 05:50 | NUR ---
CALLED [facility] TO SET UP FOR TRANSFER TO [facility], AT THIS TIME DUE TO WEATHER UNABLE TO FLY OUT....[facility] WILL CHECK AGAIN AND CALL BACK BETWEEN 8-9AM WITH WEATHER UPDATE.
[2021-11-09] MEDS: tacrolimus anhydrous 1mg capsule PO SCH (08:15)
[2021-11-09] MEDS: morphine 4 MG/ML inj SYRINge IV PRN (09:31)
[2021-11-09 10:32] VITALS: BP 133/56
== END 2021-11-09 10:36 | disposition short-term general hospital (02) ==
LOC: ER 11:13
DX: D64.9 Anemia, unspecified (principal); Z20.822 Contact with and (suspected) exposure to COVID-19; Z79.899 Other long term (current) drug therapy; K92.2 Gastrointestinal hemorrhage, unspecified; K86.3 Pseudocyst of pancreas; I86.4 Gastric varices
CPT/HCPCS: 36415; 36430; 71045; 80053; 81003; 82140; 83880; 84484; 85007; 85008; 85025; 85027; 85610; 86644; 86885; 86900; 86901; 86920; 86945; 87811; 93005; 96361; 96365; 96366; 96367; 96368; 96375; 96376; 99291; 99292; C1751; C9113; J1200; J2270; J2354; J3490; J7030; J7040; J7042; J7507; P9016; Q0163

== ENCOUNTER 2022-02-17 09:00 | Inpatient (IN) | payer MEDICAID ==
[~2022-02-17] VITALS: Ht 177.8 cm; Wt 65.0 kg
[2022-02-17] MEDS ORDERED: metoclopramide 5 mg/ml inj IV ONE (09:25)
[2022-02-17] MEDS ORDERED: glycopyrrolate 0.2mg/ml inj IV ONE (09:25)
[2022-02-17] MEDS ORDERED: diphenhydrAMINE 50 mg/ml inj IV ONE (09:25)
[2022-02-17] MEDS ORDERED: LORazepam 2 mg/ml vial IV ONE (09:25)
[2022-02-17] MEDS ORDERED: normal saline 1000ML IV soln IVB ONE (09:25)
[2022-02-17 10:46] LABS: BASOPHILS % (AUTO) 0.1 % (0-1); EOSINOPHILS % (AUTO) 0 % (0-6); LYMPHOCYTES # (AUTO) 0.8 X10'3 (1.1-4.8); LYMPHOCYTES % (AUTO) 6.2 % (21-51); MEAN PLATELET VOLUME 8.7 FL (7.4-10.4); MONOCYTES % (AUTO) 7.8 % (2-12); NEUTROPHILS # (AUTO) 10.8 X10'3 (1.8-7.7); NEUTROPHILS % (AUTO) 85.9 % (42-75); PLATELET COUNT 195 X10'3 (140-440); WHITE BLOOD COUNT 12.6 X10'3 (4.5-11.0)
[2022-02-17 10:58] LABS: ALANINE AMINOTRANSFERASE 38 U/L (12-78); ALBUMIN 3.5 G/DL (3.4-5.0); ALBUMIN/GLOBULIN RATIO 0.8 (1.1-1.5); ALKALINE PHOSPHATASE 81 IU/L (46-116); ANION GAP 15 (8-16); ASPARTATE AMINO TRANSFERASE 41 U/L (10-37); BILIRUBIN,TOTAL 0.9 MG/DL (0.1-1.0); BLOOD UREA NITROGEN 10 MG/DL (7-18); BUN/CREATININE RATIO 11.5 (5.4-32.0); CALCIUM 9.3 MG/DL (8.5-10.1); CHLORIDE 94 MMOL/L (99-107); CREATININE 0.87 MG/DL (0.60-1.10); GLUCOSE 255 MG/DL (70-104); POTASSIUM 3.8 MMOL/L (3.5-5.1); SODIUM 131 MMOL/L (135-145); TOTAL CARBON DIOXIDE 21.9 MMOL/L (24-32); TOTAL PROTEIN 7.9 G/DL (6.4-8.2); eGFR 90 ML/MIN
[2022-02-17 11:19] LABS: LIPASE 3778 U/L (73-393)
[2022-02-17 11:25] LABS: CLARITY,URINE CLEAR (Clear); COLOR,URINE YELLOW (Yellow); GLUCOSE, URINE 500 mg/dl (Neg); KETONES,URINE >=80 mg/dl (Neg); LEUKOCYTE ESTERASE ,URINE NEGATIVE (Neg); NITRITES, URINE NEGATIVE (Neg); OCCULT BLOOD,URINE NEGATIVE (Neg); PH,URINE 6.5 (4.8-8.0); PROTEIN,URINE 100 mg/dl (Neg); UROBILINOGEN,URINE 0.2 E.U/dL (0.2-1.0)
[2022-02-17] MEDS ORDERED: morphine 10mg/ml inj. IV ONE (11:25)
[2022-02-17 11:29] LABS: HEMATOCRIT 43.1 % (42.0-52.0); HEMOGLOBIN 13.4 g/dl (14.0-17.9); MEAN CORPUSCULAR HEMOGLOBIN 25.2 PG (27.0-31.0); MEAN CORPUSCULAR HGB CONC 31.1 g/dL (33.0-36.5); RED BLOOD COUNT 5.32 X10'6 (4.70-6.10)
[2022-02-17 11:30] LABS: HYPOCHROMASIA 1+; LARGE PLATELETS FEW; PLATELET ESTIMATE NORMAL; RED CELL DISTRIBUTION WIDTH 35.8 % (11.5-14.5)
[2022-02-17] MEDS ORDERED: iohexol 300mg/ml 100ml inj. ONE (11:30)
[2022-02-17 11:31] LABS: ANISOCYTOSIS 3+; STOMATOCYTES FEW; TARGET CELLS 1+; TEAR DROP CELLS FEW
[2022-02-17 11:32] LABS: UA COLLECTION TYPE VOIDED
[2022-02-17 11:45] LABS: BACTERIA,URINE FEW /HPF (Neg); RBC,URINE 0-2 /HPF (0-2); SQUAMOUS EPITHELIAL CELL,UR NONE SEEN /LPF (FEW); WBC,URINE 0-4 /HPF (0-4); YEAST FEW /HPF (NEGATIVE)
[2022-02-17] MEDS ORDERED: magnesium 4gm in 100ml NS 100 ML IV PRN (14:35)
[2022-02-17] MEDS ORDERED: ondansetron/PF 4mg/2ml inj IV PRN (14:35)
[2022-02-17] MEDS ORDERED: potassium Cl 20 mEq SR tablet PO PRN (14:35)
[2022-02-17] MEDS ORDERED: potassium Cl 40MEQ/1/2NS 520ml 520 ML IV PRN (14:35)
[2022-02-17] MEDS ORDERED: acetaminophen 325mg tablet PO PRN (14:35)
[2022-02-17] MEDS ORDERED: morphine 2 MG/ML inj. syringe IV PRN ×2 (14:35)
[2022-02-17] MEDS ORDERED: magnesium hydroxide 30ml (MOM) UD suspension PO PRN (14:35)
[2022-02-17] MEDS: normal saline 1000ml 1,000 ML IV SCH (15:00)
[2022-02-17] MEDS ORDERED: dextrose 50%-water 50ml dispensing syringe IV PRN ×2 (15:55)
[2022-02-17] MEDS ORDERED: glucagon, human recombinant 1mg kit SUBCUT PRN (15:55)
[2022-02-17] MEDS ORDERED: DEXTROSE 15 GM of carb/4 tabs (each vial/BOTTLE has 4 tablets) PO PRN ×2 (15:55)
[2022-02-17] MEDS ORDERED: MESSAGE TO PHARMACY PO ONE (15:55)
--- NOTE | 2022-02-17 16:33 | NUR ---
report received from ER nurse TYLER awaiting pt to the floor
[2022-02-17 17:06] LABS: HEMOGLOBIN A1C 6.7 % (4.5-6.2)
--- NOTE | 2022-02-17 17:21 | NUR ---
PAGER ID: [phone] MESSAGE: pt martin ugalde [id number] BP is 192/112 and c/o pain 8/10 uncontrolled by morphine, please advise, nicholas christianson [phone]
[2022-02-17] MEDS ORDERED: HYDROmorphone 1 mg/ml syringe IV PRN (17:25)
[2022-02-17] MEDS: HYDROmorphone 1 mg/ml syringe IV PRN ×2 (17:44→22:28)
[2022-02-17] MEDS: hydrALAZINE 20mg/ml inj. IV PRN (17:46)
[2022-02-17 18:00] VITALS: BP 192/112
--- NOTE | 2022-02-17 18:23 | NUR ---
Problems reprioritized. Patient report given, questions answered & plan of care reviewed with Nanette NEWBERRY.
[2022-02-17] MEDS: insulin Lispro (HumaLOG) vial - multi-dose SQ SCH (18:48)
[2022-02-17] MEDS: docusate sod 100mg capsule PO SCH (20:00)
[2022-02-17] MEDS: K and/or MAG REPLACEMENT MC SCH (20:00)
[2022-02-17] MEDS: enoxaparin 40mg/0.4ml syringe SQ SCH (20:55)
[2022-02-17] MEDS: insulin glargine (Lantus) pen - multi-dose SQ SCH (20:57)
[2022-02-17] MEDS ORDERED: AMYL1CAP56 PO (21:55)
[2022-02-17] MEDS ORDERED: FERR325T29 PO (21:55)
[2022-02-17] MEDS ORDERED: MAGN400C PO (21:55)
[2022-02-17] MEDS ORDERED: TACR1CAP24 PO (21:55)
[2022-02-17] MEDS ORDERED: PANT40TA54 PO (21:55)
[2022-02-17] MEDS ORDERED: MULT-1142 PO (21:55)
[2022-02-17 22:00] VITALS: BP 176/105
[2022-02-18] MEDS: hydrALAZINE 20mg/ml inj. IV PRN (00:28)
[2022-02-18 00:30] VITALS: BP 179/113
[2022-02-18] MEDS: normal saline 1000ml 1,000 ML IV SCH ×3 (02:03→19:43)
[2022-02-18 02:49] VITALS: BP 144/96
[2022-02-18] MEDS: HYDROmorphone 1 mg/ml syringe IV PRN ×5 (03:48→19:33)
[2022-02-18 06:00] VITALS: BP 169/108
--- NOTE | 2022-02-18 06:10 | NUR ---
received report from quiana petit
--- NOTE | 2022-02-18 07:00 | NUR ---
Problems reprioritized. Patient report given, questions answered & plan of care reviewed with ROHITH GROVER.
[2022-02-18 07:40] LABS: ALANINE AMINOTRANSFERASE 25 U/L (12-78); ALBUMIN 3.1 G/DL (3.4-5.0); ALBUMIN/GLOBULIN RATIO 0.8 (1.1-1.5); ALKALINE PHOSPHATASE 75 IU/L (46-116); ANION GAP 9 (8-16); ASPARTATE AMINO TRANSFERASE 34 U/L (10-37); BILIRUBIN,TOTAL 0.9 MG/DL (0.1-1.0); BLOOD UREA NITROGEN 6 MG/DL (7-18); BUN/CREATININE RATIO 8.1 (5.4-32.0); CALCIUM 8.8 MG/DL (8.5-10.1); CHLORIDE 93 MMOL/L (99-107); CREATININE 0.74 MG/DL (0.60-1.10); GLUCOSE 193 MG/DL (70-104); LIPASE 694 U/L (73-393); MAGNESIUM 1.6 MG/DL (1.5-2.4); POTASSIUM 3.1 MMOL/L (3.5-5.1); SODIUM 128 MMOL/L (135-145); TOTAL CARBON DIOXIDE 25.6 MMOL/L (24-32); TOTAL PROTEIN 7.2 G/DL (6.4-8.2); eGFR > 90 ML/MIN
[2022-02-18 07:46] LABS: HEMOGLOBIN 13.7 g/dl (14.0-17.9); WHITE BLOOD COUNT 14.8 X10'3 (4.5-11.0)
[2022-02-18] MEDS: potassium Cl 20 mEq SR tablet PO PRN ×3 (07:49→16:50)
[2022-02-18 07:51] LABS: BASOPHILS % (AUTO) 0.3 % (0-1); EOSINOPHILS % (AUTO) 0 % (0-6); LYMPHOCYTES # (AUTO) 1.3 X10'3 (1.1-4.8); LYMPHOCYTES % (AUTO) 8.8 % (21-51); MEAN CORPUSCULAR HEMOGLOBIN 24.8 PG (27.0-31.0); MEAN CORPUSCULAR HGB CONC 31.1 g/dL (33.0-36.5); MEAN CORPUSCULAR VOLUME 79.8 FL (78-98); MONOCYTES # (AUTO) 1.9 X10'3 (0-0.9); MONOCYTES % (AUTO) 12.6 % (2-12); NEUTROPHILS # (AUTO) 11.6 X10'3 (1.8-7.7); NEUTROPHILS % (AUTO) 78.3 % (42-75); PLATELET COUNT 178 X10'3 (140-440); RED BLOOD COUNT 5.51 X10'6 (4.70-6.10); RED CELL DISTRIBUTION WIDTH 36.5 % (11.5-14.5)
[2022-02-18] MEDS: docusate sod 100mg capsule PO SCH ×2 (07:55→19:33)
[2022-02-18] MEDS: K and/or MAG REPLACEMENT MC SCH ×2 (07:56→19:43)
--- NOTE | 2022-02-18 08:28 | NUR ---
DM consult: Per EMR pt with T2DM, well controlled with A1c 6.7% which is down from 9.5% 09/14/21. DM education not warranted at this time. Will continue to follow. Addendum: 02/18/22 at [address] Amended: Links added.
--- NOTE | 2022-02-18 09:00 | NUR ---
pt tells me because he is npo he does not want to take insulin at this time, continue to monitor
[2022-02-18] MEDS: insulin Lispro (HumaLOG) vial - multi-dose SQ SCH ×2 (12:10→18:52)
[2022-02-18] MEDS: MULTIVITAMIN PO SCH (15:19)
[2022-02-18] MEDS: ferrous sulfate 325mg tablet PO SCH ×2 (15:19→19:33)
[2022-02-18] MEDS ORDERED: diphenhydrAMINE 25mg capsule PO PRN (17:45)
[2022-02-18 18:00] VITALS: BP 159/106
--- NOTE | 2022-02-18 18:02 | NUR ---
gave report to quiana petit
[2022-02-18] MEDS ORDERED: GADOTERATE MEGLUMINE 7.5 MMOL/15 ML VIAL IV ONE (19:00)
[2022-02-18] MEDS: magnesium oxide 400mg tablet PO SCH (19:34)
[2022-02-18] MEDS: enoxaparin 40mg/0.4ml syringe SQ SCH (19:34)
[2022-02-18] MEDS: LIPASE PO SCH (19:35)
[2022-02-18] MEDS: AMYLASE PO SCH (19:35)
[2022-02-18] MEDS: PROTEASE PO SCH (19:35)
[2022-02-18] MEDS ORDERED: tacrolimus anhydrous 1mg capsule PO SCH ×2 (20:00→21:00)
[2022-02-18] MEDS: insulin glargine (Lantus) pen - multi-dose SQ SCH (20:55)
[2022-02-18 22:00] VITALS: BP 150/103
[2022-02-19 06:31] LABS: HEMOGLOBIN 12.9 g/dl (14.0-17.9); MONOCYTES # (AUTO) 1.3 X10'3 (0-0.9); NEUTROPHILS % (AUTO) 69.8 % (42-75); PLATELET COUNT 187 X10'3 (140-440); WHITE BLOOD COUNT 11.4 X10'3 (4.5-11.0)
[2022-02-19 06:35] LABS: BASOPHILS % (AUTO) 0.2 % (0-1); EOSINOPHILS % (AUTO) 0.2 % (0-6); HEMATOCRIT 41.3 % (42.0-52.0); LYMPHOCYTES # (AUTO) 2.2 X10'3 (1.1-4.8); LYMPHOCYTES % (AUTO) 18.8 % (21-51); MEAN CORPUSCULAR HEMOGLOBIN 25.1 PG (27.0-31.0); MEAN CORPUSCULAR HGB CONC 31.2 g/dL (33.0-36.5); MEAN CORPUSCULAR VOLUME 80.6 FL (78-98); MEAN PLATELET VOLUME 8.7 FL (7.4-10.4); RED BLOOD COUNT 5.13 X10'6 (4.70-6.10); RED CELL DISTRIBUTION WIDTH 36.6 % (11.5-14.5)
--- NOTE | 2022-02-19 06:35 | NUR ---
Problems reprioritized. Patient report given, questions answered & plan of care reviewed with ROHITH COURTNEY.
--- NOTE | 2022-02-19 06:49 | NUR ---
Patient in room [facility] 349. I have received report from OLIVER araya and had the opportunity to ask questions and assume patient care.
[2022-02-19 07:08] LABS: ALANINE AMINOTRANSFERASE 23 U/L (12-78); ALBUMIN 2.8 G/DL (3.4-5.0); ALBUMIN/GLOBULIN RATIO 0.7 (1.1-1.5); ALKALINE PHOSPHATASE 70 IU/L (46-116); ANION GAP 9 (8-16); ASPARTATE AMINO TRANSFERASE 32 U/L (10-37); BILIRUBIN,TOTAL 0.8 MG/DL (0.1-1.0); BLOOD UREA NITROGEN 7 MG/DL (7-18); BUN/CREATININE RATIO 10.3 (5.4-32.0); CALCIUM 8.8 MG/DL (8.5-10.1); CHLORIDE 98 MMOL/L (99-107); CREATININE 0.68 MG/DL (0.60-1.10); GLUCOSE 131 MG/DL (70-104); LIPASE 248 U/L (73-393); MAGNESIUM 1.7 MG/DL (1.5-2.4); POTASSIUM 3.3 MMOL/L (3.5-5.1); SODIUM 134 MMOL/L (135-145); TOTAL CARBON DIOXIDE 27.4 MMOL/L (24-32); TOTAL PROTEIN 6.8 G/DL (6.4-8.2); eGFR > 90 ML/MIN
[2022-02-19] MEDS: ferrous sulfate 325mg tablet PO SCH (07:49)
[2022-02-19] MEDS: magnesium oxide 400mg tablet PO SCH (07:49)
[2022-02-19] MEDS: docusate sod 100mg capsule PO SCH (07:50)
[2022-02-19] MEDS: AMYLASE PO SCH (07:53)
[2022-02-19] MEDS: LIPASE PO SCH (07:53)
[2022-02-19] MEDS: PROTEASE PO SCH (07:53)
[2022-02-19] MEDS: HYDROmorphone 1 mg/ml syringe IV PRN (07:55)
[2022-02-19 08:00] VITALS: BP 176/111
[2022-02-19] MEDS: K and/or MAG REPLACEMENT MC SCH (08:00)
[2022-02-19] MEDS: MULTIVITAMIN PO SCH (08:00)
[2022-02-19] MEDS ORDERED: tacrolimus anhydrous 1mg capsule PO SCH (08:00)
[2022-02-19] MEDS ORDERED: pantoprazole 40mg Tablet.DR PO SCH (08:00)
[2022-02-19 08:40] LABS: ANISOCYTOSIS 3+; HYPOCHROMASIA 1+; PLATELET ESTIMATE NORMAL; TARGET CELLS 2+
[2022-02-19 08:42] LABS: SCHISTOCYTES FEW
[2022-02-19 08:53] LABS: BURR CELLS FEW
[2022-02-19] MEDS: insulin Lispro (HumaLOG) vial - multi-dose SQ SCH (09:42)
[2022-02-19] MEDS ORDERED: HYDR-3965 PO (09:49)
[2022-02-19] MEDS ORDERED: METF-1203 PO (09:49)
[2022-02-19 10:00] VITALS: BP 157/98
--- NOTE | 2022-02-19 11:01 | NUR ---
PATIENT EXTREMELY RUDE AND verbally aggressive towards staff. charge nurse Jo also present. dr alvarado called with regards changing diet as per patient request. medicated also for pain. patient educated also that he needs to ask for pain meds that are PRN, and that they are not an automatic give especially if patient appears to be sleeping. patient appears to understand. All Dc instructions given to patient. Call made to [facility] [address] with regards DC meds. awaiting answer. patient seen by DR Alvarado. All Dc instructions given to patient. meds returned to patient from [facility] pharmacy.
--- NOTE | 2022-02-19 11:24 | NUR ---
Patient apparently notified by kylie that meds were in, left [facility] before RN got off the phone to clarify .
== END 2022-02-19 11:23 | disposition home or self-care (01) | DRG 282 ==
LOC: ER 09:02 → ED HOLD 14:40 → SUR 3N 16:40
PROVIDERS: ADMIT Family Medicine; ATTEND Family Medicine
PROC: BW211ZZ Computerized Tomography (CT Scan) of Abdomen and Pelvis using Low Osmolar Contrast (ICD-10-PCS; principal; 2022-02-17)
DX: K85.90 Acute pancreatitis without necrosis or infection, unspecified (principal); K72.90 Hepatic failure, unspecified without coma; E87.1 Hypo-osmolality and hyponatremia; K86.89 Other specified diseases of pancreas; R73.9 Hyperglycemia, unspecified; D72.829 Elevated white blood cell count, unspecified; E87.6 Hypokalemia; Z94.4 Liver transplant status; R73.03 Prediabetes; Z77.098 Contact with and (suspected) exposure to other hazardous, chiefly nonmedicinal, chemicals; Z79.84 Long term (current) use of oral hypoglycemic drugs; Z82.49 Family history of ischemic heart disease and other diseases of the circulatory system; Z87.891 Personal history of nicotine dependence; Z90.81 Acquired absence of spleen; Z79.899 Other long term (current) drug therapy
CPT/HCPCS: 36415; 74177; 74181; 74183; 80053; 81001; 82948; 83036; 83690; 83735; 84145; 85008; 85025; 87081; 96374; 96375; 99285; A9575; G0378; J0360; J1170; J1200; J1650; J1815; J2060; J2270; J2274; J2765; J3490; J7030; J7507; Q9967

== ENCOUNTER 2022-09-16 14:15 | Inpatient (IN) | payer MEDICAID ==
[~2022-09-16] VITALS: Ht 177.8 cm; Wt 79.5 kg
[~2022-09-16 14:15] MED LIST changes: +AMYL1CAP56 PO; +FERR325T29 PO; +HYDR-3965 PO; +MAGN400C PO; +METF-1203 PO; +MULT-1142 PO; +PANT40TA54 PO
[2022-09-16] MEDS ORDERED: normal saline 1000ml 1,000 ML IV ONE ×2 (14:40→16:20)
[2022-09-16] MEDS ORDERED: pantoprazole 40mg IV 80 MG in normal saline 100ml IV soln 100 ML IV ONE ×2 (14:40→16:40)
[2022-09-16] MEDS ORDERED: pantoprazole 40MG/NS 100ML BAG 100 ML IV ONE (14:40)
[2022-09-16] MEDS ORDERED: tranexamic acid inj. 1,000 MG in normal saline 100ml IV soln 90 ML IV ONE (14:45)
[2022-09-16 15:08] LABS: BASOPHILS % (AUTO) 0.3 % (0-1); EOSINOPHILS % (AUTO) 0 % (0-6); HEMATOCRIT 38.8 % (42.0-52.0); HEMOGLOBIN 13.3 g/dl (14.0-17.9); LYMPHOCYTES # (AUTO) 0.7 X10'3 (1.1-4.8); LYMPHOCYTES % (AUTO) 12.9 % (21-51); MEAN CORPUSCULAR HEMOGLOBIN 37.4 PG (27.0-31.0); MEAN CORPUSCULAR HGB CONC 34.3 g/dL (33.0-36.5); MEAN CORPUSCULAR VOLUME 108.9 FL (78-98); MONOCYTES # (AUTO) 0.9 X10'3 (0-0.9); MONOCYTES % (AUTO) 15.8 % (2-12); NEUTROPHILS # (AUTO) 4.1 X10'3 (1.8-7.7); PLATELET COUNT 208 X10'3 (140-440); RED BLOOD COUNT 3.56 X10'6 (4.70-6.10); RED CELL DISTRIBUTION WIDTH 14.9 % (11.5-14.5); WHITE BLOOD COUNT 5.8 X10'3 (4.5-11.0)
[2022-09-16 15:17] LABS: APTT 26 SECONDS (22-32)
--- NOTE | 2022-09-16 15:18 | NUR ---
Dr. Felipe valled blood bank to request for PRBC to deliver buffy due to emergency need. Manual verification of PRBC done with charge nurse Coral ROHITH. Pt also signed the blood transfusion consent
[2022-09-16] MEDS ORDERED: octreotide inj. 500 MCG in normal saline 100ml IV soln 97.5 ML IV SCH (15:20)
[2022-09-16] MEDS ORDERED: octreotide 100mcg/1 ml ampule IV ONE (15:20)
[2022-09-16 15:21] LABS: ALANINE AMINOTRANSFERASE 46 U/L (12-78); ALBUMIN 3.3 G/DL (3.4-5.0); ALBUMIN/GLOBULIN RATIO 1.1 (1.1-1.5); ALKALINE PHOSPHATASE 34 IU/L (46-116); ANION GAP 33 (8-16); ASPARTATE AMINO TRANSFERASE 40 U/L (10-37); BILIRUBIN,TOTAL 1.5 MG/DL (0.1-1.0); BLOOD UREA NITROGEN 89 MG/DL (7-18); BUN/CREATININE RATIO 5.9 (10.0-20.0); CALCIUM 7.4 MG/DL (8.5-10.1); CHLORIDE 89 MMOL/L (99-107); CREATININE 15.21 MG/DL (0.60-1.10); GLUCOSE 277 MG/DL (70-104); LIPASE 62 U/L (73-393); MAGNESIUM 1.8 MG/DL (1.5-2.4); POTASSIUM 5.7 MMOL/L (3.5-5.1); SODIUM 137 MMOL/L (135-145); TOTAL CARBON DIOXIDE 15.3 MMOL/L (24-32); TOTAL PROTEIN 6.4 G/DL (6.4-8.2); eGFR 3 ML/MIN
[2022-09-16 15:22] LABS: ETHANOL < 0.010 GM/DL (0.0-0.010)
[2022-09-16 15:31] LABS: TOTAL CELLS COUNTED 100
[2022-09-16 15:32] LABS: ANISOCYTOSIS 1+; LARGE PLATELETS FEW; PLATELET ESTIMATE NORMAL
[2022-09-16] MEDS ORDERED: ondansetron/PF 4mg/2ml inj IV ONE (15:45)
[2022-09-16] MEDS ORDERED: LidoCAINE 2% Topical Jelly 11mL syringe TOP ONE ×2 (16:00→16:25)
[2022-09-16] MEDS ORDERED: SODIUM BICARB 150mEq/D5W 1L 1,000 ML IV SCH (16:15)
[2022-09-16] MEDS ORDERED: albuterol 2.5 MG/3 ML nebule NEB ONE (16:15)
[2022-09-16] MEDS: CALCIUM GLUC 1gm/50ml NACL,iso 50 ML IV SCH ×2 (16:20→16:50)
[2022-09-16] MEDS ORDERED: sodium bicarbonate (8.4%) inj. 150 MEQ in dextrose 5%-water 1,000 ML IV SCH (16:21)
[2022-09-16] MEDS ORDERED: magnesium hydroxide 30ml (MOM) UD suspension PO PRN (16:25)
[2022-09-16] MEDS ORDERED: ondansetron/PF 4mg/2ml inj IV PRN (16:25)
[2022-09-16] MEDS: normal saline 1000ml 1,000 ML IV SCH (16:25)
--- NOTE | 2022-09-16 16:38 | NUR ---
MD MCCAIN AT BEDSIDE
--- NOTE | 2022-09-16 16:42 | NUR ---
NS 1L bolus # 3 started, verbal order was received from Dr. Saxena
[2022-09-16 16:48] LABS: CLARITY,URINE CLOUDY (Clear); COLOR,URINE YELLOW (Yellow); GLUCOSE, URINE NEGATIVE (Neg); KETONES,URINE TRACE mg/dl (Neg); LEUKOCYTE ESTERASE ,URINE TRACE (Neg); NITRITES, URINE NEGATIVE (Neg); OCCULT BLOOD,URINE SMALL (Neg); PH,URINE 5.5 (4.8-8.0); PROTEIN,URINE 100 mg/dl (Neg); UROBILINOGEN,URINE 0.2 E.U/dL (0.2-1.0)
[2022-09-16] MEDS ORDERED: METF-438 PO ×3 (16:56→18:15)
[2022-09-16] MEDS ORDERED: AMYL1CAP57 PO (16:56)
[2022-09-16] MEDS ORDERED: LISI10TA27 PO (16:56)
[2022-09-16 17:16] LABS: URINE AMPHETAMINE SCREEN NEGATIVE (Neg); URINE BARBITUATE SCREEN NEGATIVE (Neg); URINE BENZODIAZEPINES SCREEN NEGATIVE (Neg); URINE CANNABINOID SCREEN NEGATIVE (Neg); URINE COCAINE SCREEN NEGATIVE (Neg); URINE METHADONE SCREEN NEGATIVE (Neg); URINE OPIATE SCREEN NEGATIVE (Neg); URINE PHENCYCLIDINE SCREEN NEGATIVE (Neg)
[2022-09-16 17:18] LABS: UA COLLECTION TYPE FOLEY CATH
[2022-09-16 17:19] LABS: HYALINE CASTS >30 /LPF (NEGATIVE); RENAL CELLS, URINE MODERATE /HPF; SQUAMOUS EPITHELIAL CELL,UR FEW /LPF (FEW); TRANSITIONAL EPI CELLS,URINE MODERATE /HPF
[2022-09-16 17:20] LABS: BACTERIA,URINE 1+ /HPF (Neg); RBC,URINE 0-2 /HPF (0-2)
[2022-09-16] MEDS ORDERED: DEXTROSE 15 GM of carb/4 tabs (each vial/BOTTLE has 4 tablets) PO PRN ×2 (17:25)
[2022-09-16] MEDS ORDERED: glucagon, human recombinant 1mg kit SUBCUT PRN (17:25)
[2022-09-16] MEDS ORDERED: dextrose 50%-water 50ml dispensing syringe IV PRN ×2 (17:25)
[2022-09-16] MEDS ORDERED: MESSAGE TO PHARMACY PO ONE (17:25)
[2022-09-16 17:38] LABS: HEMATOCRIT 41.5 % (42.0-52.0); HEMOGLOBIN 14.2 g/dl (14.0-17.9); MEAN CORPUSCULAR HGB CONC 34.1 g/dL (33.0-36.5); MEAN CORPUSCULAR VOLUME 108.4 FL (78-98); MEAN PLATELET VOLUME 8.7 FL (7.4-10.4); PLATELET COUNT 163 X10'3 (140-440); RED BLOOD COUNT 3.83 X10'6 (4.70-6.10); WHITE BLOOD COUNT 7.1 X10'3 (4.5-11.0)
[2022-09-16 18:00] VITALS: BP 96/60; PULSE 83; RESP 16; O2SAT 95
[2022-09-16 18:23] LABS: ABG BASE EXCESS -9.3 mmol/L (-2.0-2.0); ABG HCO3 13.4 mmol/L (22.0-26.0); ABG PCO2 (T) 22.7 mmHg (35.0-48.0); ABG PO2 (T) 133.5 mmHg (75.0-100.0); ALLEN'S TEST POSITIVE; FCOHb 0.3 % (0.0-3.9); FMetHb 0.4 % (0.0-1.5); FO2Hb 97.3 % (94-97); PATIENT TEMPERATURE 37.1; TOTAL HEMOGLOBIN 14.1 G/dl (14.0-17.9)
[2022-09-16] MEDS ORDERED: dexmedetomidin/NS 400mcg/100ml 100 ML IV PRN (18:45)
[2022-09-16] MEDS ORDERED: LORazepam 2 mg/ml vial IV PRN (18:45)
[2022-09-16] MEDS ORDERED: dexmedetomidine inj. 400 MCG in normal saline 100ml IV soln 96 ML IV PRN (18:54)
[2022-09-16 19:00] VITALS: BP 95/65; PULSE 85; RESP 22; O2SAT 99
[2022-09-16 20:00] VITALS: BP 117/83; PULSE 92; RESP 16; RESP 17; O2SAT 97
[2022-09-16 21:00] VITALS: BP 83/52; PULSE 69; RESP 19; O2SAT 95
[2022-09-16] MEDS: insulin glargine (Lantus) pen - multi-dose SQ SCH (21:00)
[2022-09-16 22:00] VITALS: BP 80/37; PULSE 66; RESP 14; O2SAT 96
[2022-09-16 23:00] VITALS: BP 91/47; PULSE 73; RESP 15; O2SAT 96
[2022-09-17] VITALS (22 sets, daily range): BP systolic 98–185; BP diastolic 53–113; PULSE 65–88; RESP 14–28; O2SAT 93–97
[2022-09-17] MEDS: normal saline 1000ml 1,000 ML IV SCH ×3 (05:51→23:59)
[2022-09-17 06:11] LABS: BASOPHILS # (AUTO) 0.1 X10'3 (0-0.2); BASOPHILS % (AUTO) 1.5 % (0-1); EOSINOPHILS # (AUTO) 0.2 X10'3 (0-0.9); EOSINOPHILS % (AUTO) 2.2 % (0-6); HEMATOCRIT 40.3 % (42.0-52.0); HEMOGLOBIN 13.8 g/dl (14.0-17.9); LYMPHOCYTES # (AUTO) 1.5 X10'3 (1.1-4.8); LYMPHOCYTES % (AUTO) 19.4 % (21-51); MEAN CORPUSCULAR HEMOGLOBIN 37.1 PG (27.0-31.0); MEAN CORPUSCULAR HGB CONC 34.3 g/dL (33.0-36.5); MEAN CORPUSCULAR VOLUME 108.2 FL (78-98); MEAN PLATELET VOLUME 9.5 FL (7.4-10.4); MONOCYTES # (AUTO) 1.1 X10'3 (0-0.9); MONOCYTES % (AUTO) 13.8 % (2-12); NEUTROPHILS # (AUTO) 4.9 X10'3 (1.8-7.7); NEUTROPHILS % (AUTO) 63.1 % (42-75); PLATELET COUNT 174 X10'3 (140-440); RED BLOOD COUNT 3.73 X10'6 (4.70-6.10); WHITE BLOOD COUNT 7.8 X10'3 (4.5-11.0)
--- NOTE | 2022-09-17 06:29 | NUR ---
Patient in room CICU 2008. I have received report from ROHITH Flanagan and had the opportunity to ask questions and assume patient care.
[2022-09-17 06:31] LABS: ALANINE AMINOTRANSFERASE 47 U/L (12-78); ALKALINE PHOSPHATASE 33 IU/L (46-116); ANION GAP 21 (8-16); ASPARTATE AMINO TRANSFERASE 64 U/L (10-37); BILIRUBIN,TOTAL 1.7 MG/DL (0.1-1.0); BLOOD UREA NITROGEN 81 MG/DL (7-18); BUN/CREATININE RATIO 8.4 (10.0-20.0); CALCIUM 7.2 MG/DL (8.5-10.1); CHLORIDE 99 MMOL/L (99-107); CREATININE 9.65 MG/DL (0.60-1.10); GLUCOSE 208 MG/DL (70-104); MAGNESIUM 1.6 MG/DL (1.5-2.4); PHOSPHORUS 7.5 MG/DL (2.3-4.5); POTASSIUM 4.9 MMOL/L (3.5-5.1); SODIUM 140 MMOL/L (135-145); TOTAL CARBON DIOXIDE 20.1 MMOL/L (24-32); eGFR 6 ML/MIN
[2022-09-17] MEDS: pantoprazole 40MG/NS 100ML BAG 100 ML IV SCH ×2 (08:24→20:07)
[2022-09-17] MEDS ORDERED: ringers solution, lacted 1,000 ML IV ONE (09:40)
[2022-09-17] MEDS ORDERED: ringers solution, lacted 2,000 ML IV ONE (10:40)
--- NOTE | 2022-09-17 10:56 | NUR ---
Per EMR pt with EtOH hx, MCV elevated at 108.2 today. D/w MD recommendation for routine Thiamine, Folic acid, and MVI, agrees. Clinical pharmacist to update order in EMR. MD notified of patient's elevated Phos 7.5 mg/dL, no phos binder initiated at this time. Per EMR pt with T2DM, on Metformin at home per MD. MD notified of patient's most recent A1c 6.7% 02/17/22 which is down from 9.5% 09/14/21 per EMR. A new A1c to be obtained this admit per MD. Will continue to follow and monitor need for DM education pending A1c results. Addendum: 09/17/22 at [address] Amended: Links added.
[2022-09-17] MEDS ORDERED: MIDAZolam 1 MG/ML 5ML VIAL ONE (11:46)
[2022-09-17] MEDS ORDERED: LIDOcaine Viscous 15ml cup ONE (11:46)
[2022-09-17] MEDS ORDERED: fentaNYL/PF 50MCG/1 ML 2ML syringe ONE (11:46)
[2022-09-17] MEDS: thiamine 100mg tablet PO SCH (13:07)
[2022-09-17] MEDS: folic acid 1mg tablet PO SCH (13:07)
[2022-09-17] MEDS: multivitamins, therapeutics tablet PO SCH (13:13)
--- NOTE | 2022-09-17 14:15 | NUR ---
Russell catheter discontinued
[2022-09-17] MEDS: acetaminophen 325mg tablet PO PRN (14:32)
[2022-09-17] MEDS: insulin Lispro (HumaLOG) vial - multi-dose SQ SCH (14:43)
--- NOTE | 2022-09-17 18:16 | NUR ---
Problems reprioritized. Patient report given, questions answered & plan of care reviewed with ROHITH Andino.
[2022-09-17 18:47] LABS: CLARITY,URINE CLEAR (Clear); COLOR,URINE YELLOW (Yellow); GLUCOSE, URINE 250 mg/dl (Neg); KETONES,URINE TRACE mg/dl (Neg); LEUKOCYTE ESTERASE ,URINE NEGATIVE (Neg); NITRITES, URINE NEGATIVE (Neg); OCCULT BLOOD,URINE MODERATE (Neg); PH,URINE 5.5 (4.8-8.0); PROTEIN,URINE 30 mg/dl (Neg)
[2022-09-17 18:54] LABS: UA COLLECTION TYPE VOIDED
[2022-09-17 18:56] LABS: BACTERIA,URINE FEW /HPF (Neg); COARSE GRANULAR CAST 0-3 /LPF (NEGATIVE); MUCUS STRANDS FEW /LPF (Neg); RBC,URINE 20-50 /HPF (0-2); SQUAMOUS EPITHELIAL CELL,UR FEW /LPF (FEW); TRANSITIONAL EPI CELLS,URINE FEW /HPF
[2022-09-17] MEDS: LORazepam 2 mg/ml vial IV PRN (23:27)
[2022-09-17] MEDS: insulin glargine (Lantus) pen - multi-dose SQ SCH (23:32)
[2022-09-18] VITALS (9 sets, daily range): BP systolic 104–142; BP diastolic 37–94; PULSE 69–88; RESP 14–18; TEMP 97.3; O2SAT 94–99
[2022-09-18 06:25] LABS: BASOPHILS # (AUTO) 0.1 X10'3 (0-0.2); BASOPHILS % (AUTO) 1.2 % (0-1); EOSINOPHILS # (AUTO) 0.4 X10'3 (0-0.9); EOSINOPHILS % (AUTO) 6.7 % (0-6); HEMATOCRIT 37.9 % (42.0-52.0); HEMOGLOBIN 12.8 g/dl (14.0-17.9); LYMPHOCYTES # (AUTO) 1.4 X10'3 (1.1-4.8); LYMPHOCYTES % (AUTO) 21.4 % (21-51); MEAN CORPUSCULAR HEMOGLOBIN 37.2 PG (27.0-31.0); MEAN CORPUSCULAR HGB CONC 33.8 g/dL (33.0-36.5); MEAN CORPUSCULAR VOLUME 110.2 FL (78-98); MEAN PLATELET VOLUME 9.8 FL (7.4-10.4); MONOCYTES % (AUTO) 16.2 % (2-12); NEUTROPHILS # (AUTO) 3.5 X10'3 (1.8-7.7); NEUTROPHILS % (AUTO) 54.5 % (42-75); PLATELET COUNT 159 X10'3 (140-440); RED BLOOD COUNT 3.44 X10'6 (4.70-6.10); RED CELL DISTRIBUTION WIDTH 15.3 % (11.5-14.5); WHITE BLOOD COUNT 6.5 X10'3 (4.5-11.0)
[2022-09-18] MEDS: normal saline 1000ml 1,000 ML IV SCH ×2 (06:30→19:36)
[2022-09-18 06:53] LABS: RHEUM FACTOR QUAL REFLEX TITER NEGATIVE (Neg)
[2022-09-18 07:00] LABS: ALANINE AMINOTRANSFERASE 44 U/L (12-78); ALBUMIN 2.8 G/DL (3.4-5.0); ALKALINE PHOSPHATASE 32 IU/L (46-116); ANION GAP 16 (8-16); ASPARTATE AMINO TRANSFERASE 55 U/L (10-37); BILIRUBIN,TOTAL 1.2 MG/DL (0.1-1.0); BLOOD UREA NITROGEN 54 MG/DL (7-18); BUN/CREATININE RATIO 20.8 (10.0-20.0); CALCIUM 7.5 MG/DL (8.5-10.1); CHLORIDE 106 MMOL/L (99-107); CREATINE KINASE 97 U/L (39-308); GLUCOSE 174 MG/DL (70-104); LACTATE DEHYDROGENASE 311 U/L (85-227); MAGNESIUM 1.2 MG/DL (1.5-2.4); SODIUM 140 MMOL/L (135-145); TOTAL CARBON DIOXIDE 18.1 MMOL/L (24-32); TOTAL PROTEIN 5.7 G/DL (6.4-8.2); eGFR 25 ML/MIN
[2022-09-18 07:04] LABS: HEMOGLOBIN A1C 7.3 % (4.5-6.2)
[2022-09-18 07:31] LABS: PLATELET ESTIMATE NORMAL; TOTAL CELLS COUNTED 100
[2022-09-18 07:52] LABS: HIV ANTIBODY 1&2 RAPID NON-REACTIVE (Neg)
[2022-09-18] MEDS: multivitamins, therapeutics tablet PO SCH (08:08)
[2022-09-18] MEDS: acetaminophen 325mg tablet PO PRN (08:08)
[2022-09-18] MEDS: thiamine 100mg tablet PO SCH (08:08)
[2022-09-18] MEDS: folic acid 1mg tablet PO SCH (08:08)
[2022-09-18] MEDS: insulin Lispro (HumaLOG) vial - multi-dose SQ SCH ×2 (09:34→18:56)
--- NOTE | 2022-09-18 12:18 | NUR ---
DM consult: Pt presents with A1c of 7.3% and BG 147-198mg/dl for the past two days. Pt seen at bedside. Verbal/written diabetic nutrition education provided. Pt reports having nutrition education in the past through Medical and may start checking his BG everyday after discharge if his doctor recommends. Diabetic nutrition education left at bedside with RD contact information provided. Pt encouraged to reach out for any nutrition related questions or concerns. Will continue to monitor. Addendum: 09/18/22 at [address] Amended: Links added. Addendum: 09/18/22 at [address] SANDRA has reviewed and approves of above note.
--- NOTE | 2022-09-18 18:15 | NUR ---
Patient in room CICU 2008. I have received report from Fausto NEWBERRY and had the opportunity to ask questions and assume patient care.
--- NOTE | 2022-09-18 18:22 | NUR ---
Problems reprioritized. Patient report given, questions answered & plan of care reviewed with ROHITH Schaefer.
[2022-09-18] MEDS: LORazepam 2 mg/ml vial IV PRN (21:00)
[2022-09-18] MEDS: insulin glargine (Lantus) pen - multi-dose SQ SCH (21:04)
--- NOTE | 2022-09-18 22:00 | NUR ---
Patient in room ORTHO 4013. I have received report from Silvano NEWBERRY and had the opportunity to ask questions and assume patient care.
--- NOTE | 2022-09-18 22:15 | NUR ---
Problems reprioritized. Patient report given, questions answered & plan of care reviewed with Tammi NEWBERRY. Patient tranferred via wheelchair with all belongings.
[2022-09-19] MEDS: normal saline 1000ml 1,000 ML IV SCH ×2 (00:16→05:59)
[2022-09-19 06:00] VITALS: BP 116/67; PULSE 71; RESP 16; TEMP 98; O2SAT 95
--- NOTE | 2022-09-19 06:12 | NUR ---
I have received report from ROHITH Cadena; and had the opportunity to ask questions and assume patient care. Patient has no acute distress at this time.
[2022-09-19 06:57] LABS: HEMOGLOBIN 11.5 g/dl (14.0-17.9); MEAN PLATELET VOLUME 9.8 FL (7.4-10.4); WHITE BLOOD COUNT 5.8 X10'3 (4.5-11.0)
[2022-09-19 06:58] LABS: HEMATOCRIT 33.6 % (42.0-52.0); MEAN CORPUSCULAR HEMOGLOBIN 37.3 PG (27.0-31.0); MEAN CORPUSCULAR HGB CONC 34.3 g/dL (33.0-36.5); MEAN CORPUSCULAR VOLUME 108.6 FL (78-98); PLATELET COUNT 145 X10'3 (140-440); RED BLOOD COUNT 3.09 X10'6 (4.70-6.10); RED CELL DISTRIBUTION WIDTH 14.9 % (11.5-14.5)
[2022-09-19 07:03] LABS: ALANINE AMINOTRANSFERASE 41 U/L (12-78); ALBUMIN 2.4 G/DL (3.4-5.0); ALKALINE PHOSPHATASE 30 IU/L (46-116); ANION GAP 12 (8-16); ASPARTATE AMINO TRANSFERASE 51 U/L (10-37); BILIRUBIN,TOTAL 0.8 MG/DL (0.1-1.0); BLOOD UREA NITROGEN 29 MG/DL (7-18); BUN/CREATININE RATIO 26.6 (10.0-20.0); CALCIUM 6.7 MG/DL (8.5-10.1); CHLORIDE 112 MMOL/L (99-107); CREATININE 1.09 MG/DL (0.60-1.10); GLUCOSE 124 MG/DL (70-104); PHOSPHORUS 1.8 MG/DL (2.3-4.5); POTASSIUM 3.5 MMOL/L (3.5-5.1); SODIUM 142 MMOL/L (135-145); TOTAL CARBON DIOXIDE 17.8 MMOL/L (24-32); TOTAL PROTEIN 4.9 G/DL (6.4-8.2); eGFR 69 ML/MIN
[2022-09-19] MEDS: thiamine 100mg tablet PO SCH (07:44)
[2022-09-19] MEDS: folic acid 1mg tablet PO SCH (07:44)
[2022-09-19] MEDS: multivitamins, therapeutics tablet PO SCH (07:44)
[2022-09-19] MEDS: acetaminophen 325mg tablet PO PRN (07:45)
[2022-09-19 07:49] LABS: MAGNESIUM 0.7 MG/DL (1.5-2.4)
--- NOTE | 2022-09-19 07:54 | NUR ---
PAGER ID: [phone] MESSAGE: [id number] Pt in RM; [id number] Mauricio Stone. CRITICAL LAB VALUE:0.7. Can we put in the protocol? Nothing in the MAR. (111 character message out of a maximum of 240) CLOSE [X] SEND ANOTHER PAGE Thank you for visiting [facility] promotional table spacer promotional table spacer
[2022-09-19 08:00] VITALS: RESP 16; O2SAT 97
[2022-09-19 08:15] LABS: TOTAL CELLS COUNTED 100
[2022-09-19 08:22] LABS: LARGE PLATELETS FEW; PLATELET ESTIMATE NORMAL; SMUDGE CELLS FEW
--- NOTE | 2022-09-19 08:42 | NUR ---
Called the resident working under Dr. Story today to relay the critical again: got the okay to put in the protocol. CTM
[2022-09-19] MEDS ORDERED: potassium Cl 40MEQ/1/2NS 520ml 520 ML IV PRN (08:45)
[2022-09-19] MEDS ORDERED: potassium Cl 20 mEq SR tablet PO PRN ×2 (08:45)
[2022-09-19] MEDS ORDERED: magnesium 4gm in 100ml NS 100 ML IV PRN (08:45)
[2022-09-19] MEDS ORDERED: magnesium 2GM in 50ml NS 50 ML IV PRN (08:45)
[2022-09-19] MEDS: insulin Lispro (HumaLOG) vial - multi-dose SQ SCH (08:53)
[2022-09-19 10:00] VITALS: BP 120/82; PULSE 70; RESP 16; TEMP 97; O2SAT 97
--- NOTE | 2022-09-19 11:11 | NUR ---
Consulted w/ the Hospitalist and residence working under them: Notified them the patients' IV is infilltrated but still had the magnesium running due to the Critical low value of Mag. They okayed for the IV to stay out, and we will proceed w/ administering the Magnesium protocol of 1 dose BID of Mag.
[2022-09-19] MEDS: magnesium Cl slow-release 64mg tablet PO PRN ×2 (11:13→13:32)
[2022-09-19 12:11] LABS: ANTISTREPTOLYSIN O AB 173.3 IU/mL (0.0-200.0); COMPLEMENT C3, SERUM 66 mg/dL (82-167); COMPLEMENT C4, SERUM 12 mg/dL (12-38)
[2022-09-19] MEDS ORDERED: thiamine tablet PO (12:30)
[2022-09-19] MEDS ORDERED: FOLI1TAB27 PO (12:30)
[2022-09-19] MEDS ORDERED: MAGN400C PO (12:30)
--- NOTE | 2022-09-19 12:57 | NUR ---
Pt has no transportation home: I have received an okay the House [facility] to have a cab transport the patient home. Called [employer] and stated they will arrived in 30-50 minutes.
--- NOTE | 2022-09-19 13:32 | NUR ---
Hospitalist okayed for the second dose of mag to be administered before the patient is d/c'd knowing the time frame.
--- NOTE | 2022-09-19 13:36 | NUR ---
TECHNICAL TRAINING SPECIALIST documentation: I have reviewed and agree with all interventions, assessments performed and documented by Kamla Galan LVN.
--- NOTE | 2022-09-19 14:10 | NUR ---
Received a f/u Mg level of this pt s/p. The hospitalist/ resident's assigned this patient have known of this level prior. The replacement was performed prior. I will notify the provider of this AGAIN even s/p d/c. Patient has no acute distress, no visible symptoms, and denied any new or onset symptoms. Patient took [employer] transport to destination provided, had a bag of clothes/ belongings. IV d/c'd of the Rt forearm earlier this a.m. Patient educated and provided d/c instructions of the specialist to f/u on in re: for nephrology, transplant provider and PCP. Patient understood to continue to Mg orders by the provider. Understands to get the f/u level on this within the time provided on the paperwork. Patient was stable, alert and oriented.
[2022-09-19 17:27] LABS: A/G RATIO 1.2 (0.7-1.7); ALBUMIN 2.8 g/dL (2.9-4.4); BETA GLOBULIN 0.7 g/dL (0.7-1.3); GAMMA GLOBULIN 0.8 g/dL (0.4-1.8); GLOBULIN, TOTAL 2.3 g/dL (2.2-3.9); M-SPIKE Not Observed g/dL (Not Observed); PROTEIN, TOTAL, SERUM 5.1 g/dL (6.0-8.5)
[2022-09-19] MEDS ORDERED: K and/or MAG REPLACEMENT MC SCH (20:00)
[2022-09-20 08:53] LABS: HBSAG SCREEN Negative (Negative)
[2022-09-20 15:30] LABS: ANTINUCLEAR ANTIBODIES Negative (Negative)
== END 2022-09-19 13:32 | disposition home or self-care (01) | DRG 241 ==
LOC: ER 14:16 → CICU 2S 16:32 → EDBEDREQSVC 16:37 → ORTHO 4S 09-18 22:25
PROVIDERS: ADMIT Internal Medicine Critical Care Medicine; ATTEND Internal Medicine Critical Care Medicine
PROC: 30233N1 Transfusion of Nonautologous Red Blood Cells into Peripheral Vein, Percutaneous Approach (ICD-10-PCS; principal; 2022-09-16)
PROC: 0DB78ZX Excision of Stomach, Pylorus, Via Natural or Artificial Opening Endoscopic, Diagnostic (ICD-10-PCS; 2022-09-17)
PROC: 0DB78ZX Excision of Stomach, Pylorus, Via Natural or Artificial Opening Endoscopic, Diagnostic (ICD-10-PCS; 2022-09-17)
DX: K25.4 Chronic or unspecified gastric ulcer with hemorrhage (principal); R57.1 Hypovolemic shock; N17.0 Acute kidney failure with tubular necrosis; K21.01 Gastro-esophageal reflux disease with esophagitis, with bleeding; E83.39 Other disorders of phosphorus metabolism; E83.51 Hypocalcemia; E87.4 Mixed disorder of acid-base balance; D64.9 Anemia, unspecified; E11.9 Type 2 diabetes mellitus without complications; D75.89 Other specified diseases of blood and blood-forming organs; Z94.4 Liver transplant status; K29.71 Gastritis, unspecified, with bleeding; E86.0 Dehydration; E83.42 Hypomagnesemia; R55 Syncope and collapse; I10 Essential (primary) hypertension; E87.5 Hyperkalemia; F10.10 Alcohol abuse, uncomplicated; Z77.098 Contact with and (suspected) exposure to other hazardous, chiefly nonmedicinal, chemicals; Z79.84 Long term (current) use of oral hypoglycemic drugs; Z82.49 Family history of ischemic heart disease and other diseases of the circulatory system; Z86.718 Personal history of other venous thrombosis and embolism; Z87.891 Personal history of nicotine dependence; Z90.81 Acquired absence of spleen; Z79.899 Other long term (current) drug therapy
CPT/HCPCS: 36415; 36430; 36600; 43239; 71045; 76770; 80053; 80197; 80305; 80320; 81001; 82140; 82550; 82803; 82948; 83036; 83615; 83690; 83735; 84100; 84132; 84155; 84165; 84300; 84484; 85007; 85018; 85025; 85027; 85610; 85651; 85730; 86038; 86060; 86160; 86430; 86703; 86885; 86900; 86901; 86920; 87081; 87088; 87340; 93005; 97116; 97161; 97530; 99152; 99285; A4615; A6213; C1758; C9113; G0378; J1815; J2060; J2250; J2354; J2405; J3010; J3475; J3490; J7030; J7050; J7120; P9016